=== PATIENT | female | born 1990 | race Caucasian/White ===

== ENCOUNTER 2016-09-26 17:05 | Emergency (ER) | payer SELFPAY | END 2016-09-26 20:00 | disposition left against medical advice (07) | LOC: ER1 17:05 | DX: Z53.21 Procedure and treatment not carried out due to patient leaving prior to being seen by health care provider (principal) | CPT/HCPCS: 93005 ==

== ENCOUNTER 2021-08-03 10:30 | Emergency (ER) | payer SELFPAY ==
[~2021-08-03 10:30] MED LIST: CEFUROXIME500 MG PO; ZOFRAN ODT 4 MG4 MG PO
== END 2021-08-03 10:39 | disposition left against medical advice (07) ==
LOC: ER1 10:30
DX: Z53.21 Procedure and treatment not carried out due to patient leaving prior to being seen by health care provider (principal)

== ENCOUNTER 2021-09-03 00:15 | Emergency (ER) | payer OTHER | END 2021-09-03 02:00 | disposition left against medical advice (07) | LOC: ER1 00:15 | DX: T16.1XXA Foreign body in right ear, initial encounter (principal); F17.210 Nicotine dependence, cigarettes, uncomplicated | CPT/HCPCS: 99282 ==

== ENCOUNTER 2021-12-14 16:33 | Emergency (ER) | payer OTHER | END 2021-12-14 17:40 | disposition left against medical advice (07) | LOC: ER1 16:33 | DX: Z53.21 Procedure and treatment not carried out due to patient leaving prior to being seen by health care provider (principal) ==

== ENCOUNTER 2022-03-09 01:02 | Emergency (ER) | payer OTHER ==
[2022-03-09] MEDS ORDERED: AMOX TR-K CLV1 EAC4 PO (04:59)
== END 2022-03-09 05:05 | disposition home or self-care (01) ==
LOC: ER1 01:02
DX: H66.92 Otitis media, unspecified, left ear (principal); R51.9 Headache, unspecified; F17.200 Nicotine dependence, unspecified, uncomplicated
CPT/HCPCS: 99282